=== PATIENT | female | born 1950 | race Caucasian/White ===

== ENCOUNTER 2022-11-14 12:08 | Outpatient (CLI) | payer MEDICARE | END 2022-11-14 12:09 | disposition home or self-care (01) | LOC: CSHCP 12:08 | PROVIDERS: ATTEND Nurse Practitioner Acute Care | DX: J20.9 Acute bronchitis, unspecified (principal); R06.00 Dyspnea, unspecified; J98.4 Other disorders of lung | CPT/HCPCS: 94010; 94726; 94729; 94760 ==